=== PATIENT | female | born 1950 ===

== ENCOUNTER 2017-01-20 04:30 | Emergency (ER) | payer BC ==
[~2017-01-20] VITALS: Ht 157.5 cm; Wt 68.6 kg
[2017-01-20 04:35] VITALS: Ht 157.5 cm; Wt 68.6 kg
[2017-01-20] MEDS ORDERED: IBUPROFEN 600 MG TAB PO ONE (05:30)
--- NOTE | 2017-01-20 06:30 | ERD ---
ER Documentation Chief Complaint Chief Complaint fell last , R rib cage pain now HPI Patient is a 66-year-old female with no past medical history who presents to the ED for concerns of right lower rib cage pain 2 days. Patient states the pain was minimal however approximately an hour prior to her arrival, the pain was worse. Patient is unsure is she slept on her ribs. Patient states that she was walking on street 2 days ago, looking for store when she accidentally tripped on a stick that was on the ground and fell onto her right side. Patient denies any dizziness or lightheadedness prior to fall injury. Patient denies any head injury, nausea, vomiting, acute confusion or loss of consciousness after the fall incident. Patient denies any chest pain, left upper extremity pain or diaphoresis. Patient states that her pain is worse with deep inspiration. Pain is worse with positional changes only such as sitting up in bed or standing up from being seated. Patient denies any pain at rest. Patient states she did not try any medications given that she does not like to take pills. Denies any blood thinner use. Patient denies any abdominal pain, shoulder pain, nausea, vomiting, stool changes, hematuria. ROS All systems reviewed and are negative except as per history of present illness. Medications Home Meds Active Scripts Ibuprofen* (Motrin*) 600 Mg Tab, 600 MG PO Q6, #30 TAB Prov:DEVORA BRAGA PA-C 01/20/17 Allergies Allergies: Coded Allergies: No Known Allergy (Unverified , 01/20/17) PMhx/Soc Hx Alcohol Use: No Hx Substance Use: No Hx Tobacco Use: No Smoking Status: Never smoker Physical Exam Vitals Vital Signs Date Time Temp Pulse Resp B/P Pulse Ox O2 Delivery O2 Flow Rate FiO2 01/20/17 07:03 78 18 146/75 98 Room Air 01/20/17 04:35 97.7 78 18 150/67 96 Physical Exam GENERAL: Well-developed, well-nourished female. Appears in no acute distress at rest. Speaking in full sentences. HEAD: Normocephalic, atraumatic. EYES: Pupils are equally reactive bilaterally. EOMs grossly intact. No conjunctival erythema. ENT: Moist mucous membranes. No uvula deviation. No kissing tonsils. NECK: Supple. No meningismus. Normal range of motion of the neck. LUNG: Clear to auscultation bilaterally. No rhonchi, wheezing, rales or coarse breath sounds. HEART: Regular rate and rhythm. No murmurs, rubs or gallops. RIBS: Minimal, faint ecchymosis noted over right lower ribs. Area is tender to palpation. Point tenderness over R ribs. No obvious step-offs or deformities noted. Left ribs non tender to palpation. ABDOMEN: No ecchymosis or rashes noted. Soft, nontender, and nondistended. No rebound tenderness, no guarding. (-) McBurney's point tenderness. No CVA tenderness. BACK: No midline tenderness. EXTREMITIES: Equal pulses bilaterally. No peripheral clubbing, cyanosis or edema. No unilateral leg swelling. NEUROLOGIC: Alert and oriented. Moving all four extremities without any difficulty. Normal speech. Steady gait. SKIN: Normal color. Warm and dry.. Results 24 hrs Current Medications Medications (Trade) Dose Ordered Sig/Viv Route PRN Reason Start Time Stop Time Status Last Admin Dose Admin Ibuprofen (Motrin) 600 mg ONCE ONCE PO 01/20/17 05:30 01/20/17 05:31 DC 01/20/17 05:16 Procedures/MDM ED COURSE: The patient was stable throughout ED course. I kept the patient and/or family informed of laboratory and diagnostic imaging results throughout the ED course. DIAGNOSTIC IMAGING: Read by radiologist. MR #: [id number] DOS: 01/20/17 0508 Ordering MD: DEVORA BRAGA PA-C Location: [facility] Room/Bed: PROCEDURE: XR Ribs. CLINICAL INDICATION: Chest pain. TECHNIQUE: 6 frontal and oblique views of bilateral ribs were obtained. The images were reviewed on a PACS workstation. COMPARISON: None. FINDINGS: There is no evidence for a rib fracture. There are bibasilar atelectasis/ infiltrates. There is no pleural effusion. There is no pneumothorax. IMPRESSION: No acute rib fracture identified. Bibasilar atelectasis/infiltrates. .Donn Delcid MD, Date Time Electronically viewed and signed by .Donn Delcid MD, on 01/20/2017 06:43 .T/ CC: DEVORA BRAGA PA-C PROCEDURES: None. MEDICATIONS GIVEN: Ibuprofen Patient tolerated medication well with no adverse reactions. MEDICAL DECISION MAKING: Patient is a 66-year-old female presents ED for concerns of right-sided rib pain 2 days. Patient had a ground-level fall 2 days ago and recalls falling on the right sided ribs. Patient states in the middle the night she developed worsening pain and is unsure if she slept awkwardly on her ribs. Patient denied any head injury, nausea, vomiting or loss consciousness at time of injury. Patient did not feel dizzy or lightheaded prior to fall injury. Patient states she tripped over a stick that was on the ground. Patient denied any pain at rest, pain is present with positional changes. Vital signs were reviewed. Patient is afebrile. Patient was not hypoxic. Patient was hemodynamically stable. Physical exam findings revealed point tenderness with palpation over the right lower ribs. X-ray imaging was obtained with dedicated rib series was obtained. X-rays showed No acute rib fracture identified. Bibasilar atelectasis/infiltrates. At this time, patient presentation is most consistent with rib contusion. Low suspicion for rib fracture, pneumothorax, pleural effusion, pneumonia, liver injury, liver laceration, gallbladder injury , cholecystitis. PRESCRIPTION: Ibuprofen DISCHARGE: At this time, patient is stable for discharge and outpatient management. I have instructed the patient to follow-up with his/her primary care physician in 1-2 days. I have discussed with the patient the possibility of needing to see a specialist for further workup and imaging studies if symptoms persist. I have instructed the patient to promptly return to the ER for any new or worsening symptoms including increased pain, fever, nausea, vomiting, weakness or LOC. The patient and/or family expressed understanding of and agreement with this plan. All questions were answered. Home care instructions were provided. Patients blood pressure was elevated (>120/80) but appears stable without evidence of hypertensive emergency, hypertensive urgency or end-organ failure. I had discussion with the patient about the risks of hypertension. I have advised the patient to follow up with his/her primary care physician for outpatient monitoring and treatment for hypertension in 2-3 days. I have instructed the patient to return to the ER for any new or worsening symptoms including chest pain, shortness of breath, headache, blurred vision, confusion, nausea, vomiting or LOC. Disclaimer: Inadvertent spelling and grammatical errors are likely due to EHR/ dictation software use and do not reflect on the overall quality of patient care. Also, please note that the electronic time recorded on this note does not necessarily reflect the actual time of the patient encounter. Departure Diagnosis: Primary Impression: Rib pain Condition: Stable Patient Instructions: Rib Contusion Referrals: [facility] YOU HAVE RECEIVED A MEDICAL SCREENING EXAM AND THE RESULTS INDICATE THAT YOU DO NOT HAVE A CONDITION THAT REQUIRES URGENT TREATMENT IN THE EMERGENCY DEPARTMENT. FURTHER EVALUATION AND TREATMENT OF YOUR CONDITION CAN WAIT UNTIL YOU ARE SEEN IN YOUR DOCTORS OFFICE WITHIN THE NEXT 1-2 DAYS. IT IS YOUR RESPONSIBILITY TO MAKE AN APPOINTMENT FOR FOLOW-UP CARE. IF YOU HAVE A PRIMARY DOCTOR --you should call your primary doctor and schedule an appointment IF YOU DO NOT HAVE A PRIMARY DOCTOR YOU CAN CALL OUR PHYSICIAN REFERRAL HOTLINE AT IF YOU CAN NOT AFFORD TO SEE A PHYSICIAN YOU CAN CHOSE FROM THE FOLLOWING [facility] [address] [facility] [address] [facility] [facility] [address] [facility] [facility] [address] [facility]. [facility] [address] [facility]. [facility]. [address] [facility]. [facility] YOU HAVE RECEIVED A MEDICAL SCREENING EXAM AND THE RESULTS INDICATE THAT YOU DO NOT HAVE A CONDITION THAT REQUIRES URGENT TREATMENT IN THE EMERGENCY DEPARTMENT. FURTHER EVALUATION AND TREATMENT OF YOUR CONDITION CAN WAIT UNTIL YOU ARE SEEN IN YOUR DOCTORS OFFICE WITHIN THE NEXT 1-2 DAYS. IT IS YOUR RESPONSIBILITY TO MAKE AN APPOINTMENT FOR FOLOW-UP CARE. IF YOU HAVE A PRIMARY DOCTOR --you should call your primary doctor and schedule and appointment IF YOU DO NOT HAVE A PRIMARY DOCTOR YOU CAN CALL OUR PHYSICIAN REFERRAL HOTLINE AT . IF YOU CAN NOT AFFORD TO SEE A PHYSICIAN YOU CAN CHOSE FROM THE FOLLOWING [facility] INSTITUTIONS: [facility] [address] [place] [address] [facility] [address] [place] [address] [facility] [address] [place] [address] Additional Instructions: Call your primary care doctor TOMORROW for an appointment during the next 1-2 days.See the doctor sooner or return here if your condition worsens before your appointment time. DEVORA BRAGA PA-C Jan 20, 2017 06:30
--- NOTE | 2017-01-20 06:43 | RADRPT ---
PROCEDURE: XR Ribs. CLINICAL INDICATION: Chest pain. TECHNIQUE: 6 frontal and oblique views of bilateral ribs were obtained. The images were reviewed on a PACS workstation. COMPARISON: None. FINDINGS: There is no evidence for a rib fracture. There are bibasilar atelectasis/infiltrates. There is no pl eural effusion. There is no pneumothorax. IMPRESSION: No acute rib fracture identified. Bibasilar atelectasis/infiltrates. .Donn Delcid MD, Date Time Electronically viewed and signed by .Donn Delcid MD, on 01/20/2017 06:43 .T/
[2017-01-20] MEDS ORDERED: IBUP-1542 PO (06:56)
[2017-01-20 07:03] VITALS: BP 146/75; PULSE 78; RESP 18
== END 2017-01-20 07:03 | disposition home or self-care (01) ==
LOC: FTE 04:30
DX: R07.81 Pleurodynia (principal)
CPT/HCPCS: 71110